=== PATIENT | male | born 1935 | race Two or more races ===

== ENCOUNTER 2019-02-09 09:45 | Emergency (ER) | payer MEDICARE, MEDICAID ==
[~2019-02-09] VITALS: Ht 154.9 cm; Wt 61.0 kg
[2019-02-09 11:32] LABS: BASOPHILS % 0.8 % (0.0-2.0); CHLORIDE 106 mEq/L (98-107); EOSINOPHILS % 0.6 % (0.0-5.0); HEMATOCRIT. 37.8 % (42.0-52.0); HEMOGLOBIN. 12.7 g/dL (14.0-18.0); LYMPHOCYTES % 16.7 % (20.0-50.0); MEAN CORPUSCULAR HEMOGLOBIN 32.2 pg (28.0-32.0); MEAN CORPUSCULAR VOLUME 95.8 fL (80.0-94.0); MONOCYTES % 7.3 % (2.0-8.0); NEUTROPHILS % 74.6 % (40.0-76.0); PLATELET 102 x1000/uL (130-400); RED BLOOD CELL COUNT 3.94 mill/uL (4.7-6.1); RED CELL DISTRIBUTION WIDTH 12.6 % (11.6-14.6)
[2019-02-09 11:40] LABS: PROTHROMBIN TIME 10.6 sec (9.6-11.0)
[2019-02-09 12:53] VITALS: BP 145/71
== END 2019-02-09 12:55 | disposition home or self-care (01) ==
LOC: ER 10:04
DX: R42 Dizziness and giddiness (principal)
CPT/HCPCS: 36415; 71045; 84484; 93005; 99284